=== PATIENT | male | born 1975 | race African-American/Black ===

== ENCOUNTER 2023-01-11 14:36 | Observation (INO) | payer OTHER, BC, SELFPAY ==
[2023-01-11] VITALS (35 sets, daily range): BP systolic 111–145; BP diastolic 71–92; PULSE 84–114; RESP 17–31; TEMP 36.5–37.4; O2SAT 98–100
--- NOTE | ~2023-01-11 | US_ITS ---
EXAMINATION: US venous doppler UE RT DATE: 01/11/2023 18:28 INDICATION: Right upper extremity redness right TECHNIQUE: Grayscale ultrasound images without and with compression and Doppler ultrasound images of the right upper extremity veins were obtained. COMPARISON: None. FINDINGS: The right internal jugular vein, subclavian vein, axillary vein, brachial veins, cephalic vein, radia l vein, and ulnar vein are patent. There is partial thrombosis of the right mid basilic vein. There a ppears to be a small superficial fluid collection in the skin near the cephalic vein. IMPRESSION: 1. Partial thrombosis of the right mid basilic vein. 2. Possible focal skin infection. These findings were discussed with Dr. Hernandez Alcala in the Emergency Department at 1900 hours on 01/11/2023. Reviewed, dictated and finalized at location F. IMPRESSION: 1. Partial thrombosis of the right mid basilic vein. 2. Possible focal skin infection. These findings were discussed with Dr. Hernandez Alcala in the Emergency Depar tment at 1900 hours on 01/11/2023.
--- NOTE | ~2023-01-11 | XR_ITS ---
XR chest 1V portable 01/11/2023 16:53 Indication: Cough with shortness of breath Procedure: AP portable chest Comparison: No prior studies for comparison. Findings: Heart size normal. Right lung clear. Left basilar airspace disease, compatible with pneumon ia. No pleural effusion, edema or pneumothorax. Impression: 1: Left basilar airspace disease, compatible with pneumonia. Reviewed, dictated and finalized at location L. Impression: 1: Left basilar airspace disease, compatible with pneumonia.
[2023-01-11 15:22] LABS: Basophils Absolute Auto 0.1 K/mm3 (0.0-0.1); Basophils Percent Auto 0.3 % (0.2-1.2); Eosinophils Absolute Auto 0.1 K/mm3 (0-0.3); Eosinophils Percent Auto 0.5 % (0-4.4); Hematocrit 35.1 % (42.0-52.0); Hemoglobin 10.9 g/dL (14.0-18.0); Immature Granulocyte Absolute 0.08 K/mm3 (0.00-0.031); Immature Granulocyte Percent A 0.5 % (0-0.5); Lymphocytes Absolute Auto 2.37 K/mm3 (0.9-3.2); Mean Corpuscular HGB Conc 31.1 g/dl (32-36); Mean Corpuscular Hemoglobin 30.4 pg (26-34); Mean Platelet Volume 10.4 fl (7.4-10.4); Monocytes Percent Auto 11.6 % (2.6-8.5); Neutrophils Absolute Auto 12.4 K/mm3 (1.3-6.7); Neutrophils Percent Auto 73.1 % (45.5-73.1); Platelet Count Result 375 k/mm3 (150-375); Red Blood Count 3.58 M/mm3 (4.6-6.20); Red Cell Distribution Width 13.9 % (11.5-14.5)
[2023-01-11 15:31] LABS: Alanine Aminotransferase 27 U/L (6-50); Albumin Level 3.6 g/dL (3.5-5.1); Alkaline Phosphatase 63 U/L (38-126); Anion Gap 5 mmol/L (8-16); Aspartate Amino Transferase 26 U/L (17-59); Bilirubin,Total 0.4 mg/dL (0.2-1.3); Blood Urea Nitrogen 13 mg/dL (9-20); Calcium 8.3 mg/dL (8.4-10.2); Carbon Dioxide 33 mmol/L (22-30); Chloride 102 mmol/L (98-107); Estimated CRCL calculation 118 ml/min; Estimated Glomerular Filt Rate > 60; Glucose 113 mg/dL (65-110); Potassium 3.5 mmol/L (3.4-5.0); Sodium 140 mmol/L (137-145)
[2023-01-11 15:38] LABS: D Dimer 0.55 ug/mL (<0.48)
--- NOTE | 2023-01-11 16:40 | PC.NURSE ---
EDP at bedside to assess pt.
[2023-01-11] MEDS: AZITHROMYCIN 500 MG/NS 250 ML 500 MG/250 ML BAG 250 MG IVPB (17:20)
[2023-01-11 17:35] LABS: Lactic Acid Reflex 1.1 mmol/L (0.7-2.0)
--- NOTE | 2023-01-11 17:42 | PC.NURSE ---
Patient off unit to US.
--- NOTE | 2023-01-11 18:10 | ED.EXTPRO ---
HPI - Extremity Problem General Chief complaint: Extremity Problem,Nontraumatic Stated complaint: arm swelling Time Seen by Provider: 01/11/23 16:30 History of Present Illness HPI Narrative: Patient is a 47-year-old male who presents ER due to concerns of [facility] that he may have an infection or blood clot to his right arm. They noticed it was red and today. Patient has history of schizophrenia and response to internal stimuli. He also has history of IV amphetamine abuse. They are concerned he may have a complication from that. Patient received some Ativan before he came over here and he is very sleepy. He is not reporting pain at this time but is coughing frequently. There is no SI/HI. Related Data Allergies Allergy/AdvReac Type Severity Reaction Status Date / Time NSAIDS (Non-Steroidal Allergy Unknown Verified 01/11/23 16:01 Anti-Inflamma Review of Systems Review of Systems: All systems reviewed & are unremarkable except as noted in HPI and below Constitutional: Constitutional: Denies chills, Denies fatigue and Denies fever(s) ENT: Denies nasal congestion and Denies sore throat Cardiovascular: Cardiovascular: Denies chest pain, Denies radiating jaw, neck or arm pain and Denies slow heart rate Respiratory: Respiratory: Reports cough, Reports dyspnea and Denies wheezing Gastrointestinal: Gastrointestinal: Denies abdominal pain, Denies nausea and Denies vomiting Musculoskeletal: Musculoskeletal: Denies arthralgias, Denies joint swelling and Denies muscle cramps Integumentary/Breasts: Skin/Breast: Denies erythema, Denies rash and Denies skin ulcer PMF Past Medical History Medical History (Updated 01/11/23 @ 19:12 by Hernandez Alcala MD) Schizophrenia Surgical History Surgical History (Updated 01/11/23 @ 18:11 by Hernandez Alcala MD) No pertinent past surgical history Social History Social History (Updated 01/11/23 @ 18:11 by Hernandez Alcala MD) Substance use type: amphetamines and IV drugs Exam Narrative: GENERAL: Well-appearing, sleeping, and in no acute distress. HEAD: Normocephalic, atraumatic. EYES: PERRL and EOMI. ENT: Mucous membranes moist. CHEST: Coarse bibasilar lung sounds with frequent coughing. No respiratory distress. HEART: Regular rate and rhythm. Normal peripheral pulses. ABDOMEN: Soft, nontender, nondistended. EXTREMITIES: Normal range of motion. No edema. Mild induration of the right forearm that is over areas of previous scarring from injection drug use. SKIN: Warm, dry, no rash. Increased warmth to the right arm but no overt cellulitis/redness/tenderness. No injection abscess noted. NEURO: Alert and oriented x3. PSYCH: Flat affect and somewhat sedated due to Ativan. Not actively responding to internal stimuli. Course Course Emergency Course: Patient resting comfortably. He is no longer is sedate since the Ativan has worn off. Patient reports he has been having cough and dyspnea over the last few days. He also reports soreness of the former there is some induration. There is no evidence cellulitis and there is no fluctuant abscess. Was contacted by Radiology and patient seems to have a partial thrombosis of the basilic vein in the right upper extremity, this may be chronic in nature, patient reports no previous diagnosis of DVT. Additionally there is a area that is hyperdense on ultrasound I could reflect calcification from scarring or potential phlegmon/early abscess. Patient has been started on antibiotics and will be admitted for observation. Vital Signs Vital signs: Vital Signs Temperature 97.7 F 01/11/23 14:39 Pulse Rate 114 H 01/11/23 14:39 Respiratory Rate 20 01/11/23 14:39 Blood Pressure 116/76 01/11/23 14:39 Pulse Oximetry 99 01/11/23 14:39 Oxygen Delivery Room Air 01/11/23 14:39 Temperature 97.7 F 01/11/23 14:39 Pulse Rate 84 01/11/23 17:15 Respiratory Rate 22 H 01/11/23 17:15 Blood Pressure 139/
--- NOTE | 2023-01-11 19:02 | PC.NURSE ---
Patient report given to MAHOGANY Choi. All questions answered and care of patient transferred.
--- NOTE | 2023-01-11 19:15 | PC.NURSE ---
This RN assumed care of patient. This RN took patient report from MAHOGANY Evans.
[2023-01-11] MEDS: ENOXAPARIN 100 MG/ML SYRINGE 91 MG SUB-Q (21:05)
--- NOTE | 2023-01-11 21:37 | ADMGEN ---
This patient, Heath Sidhu, was admitted to [facility] Room 301-01. Patient/family oriented to hospital policies and general routines including ID bracelet, bed and alarms, visiting hours, pain management, procedures, bathroom and other care routines, personal items, smoking policy, room service/diet, and visiting hours. Information on how to activate the Rapid Response Team has been discussed. Patient/Family are encouraged to report perceived risks to care and to ask questions if they do not understand what they are told or what they should do.
--- NOTE | 2023-01-11 23:35 | PM.IMHP ---
H&P: HPI History of Present Illness Date/Time: 01/11/23 23:15 Chief Complaint: Swollen right arm. Narrative: This is a 47-year-old male smoker with ongoing IV drug abuse, hypertension, and schizophrenia who presented to the emergency department via EMS from [place] for evaluation of a swollen right arm. The patient provides the following history. He had just arrived for treatment at [place] this morning and he was found to have a red and swollen right arm. He was sent in with concerns for possible infection or clot. He endorses discomfort in the right arm, pressure-like discomfort due to the swelling. He also reports having a cough occasionally productive of clear phlegm. He has not had a fever to his knowledge but he has some chills. Appetite has been okay and he denies vomiting and diarrhea. No sinus congestion, sore throat, chest pain, pleuritic pain, or palpitations. He has no known history of MRSA. No history of DVT. In the ED: He was afebrile on arrival with stable vital signs. Labs were significant for a WBC count of 17.0, hemoglobin 10.9, lactic acid 1.1. Right upper extremity venous Doppler ultrasound showed partial thrombosis of the right mid basilic vein and possible focal skin infection. Chest x-ray showed left basilar airspace disease consistent with pneumonia. He was given a dose of azithromycin, ceftriaxone, a therapeutic dose of enoxaparin and is being admitted in this setting for further treatment. Review of Systems Review of Systems: Twelve systems were reviewed and are negative except for as per HPI. [facility] Past Medical History Medical History (Updated 01/12/23 @ 02:41 by Mer Cortez PA-C) Hypertension Intravenous drug abuse, continuous Nicotine dependence Schizophrenia Surgical History Surgical History (Updated 01/12/23 @ 02:33 by Mer Cortez PA-C) History of hernia repair Family History Family History Other Family history unknown Social History Social History (Updated 01/12/23 @ 02:35 by Mer Cortez PA-C) Social History: Emergency contact: Pierre Valdes Sr. Code status: Full code. Smoking status: Current every day smoker Tobacco type: cigarettes Substance use: current Substance use type: amphetamines and IV drugs Lack of Transportation: YES Lack of Food: Sometimes True Current Housing: I Do Not Have Housing Concerned About Future Housing: YES Difficulty Paying Gas/Electric Bills: No Difficulty Paying for Meds: YES Currently Unemployed: YES Education: High School Diploma/GED Difficulty w/ Childcare or Family Care: No Spiritual care concerns: No Meds Home Medications and Allergies Home Medications Medication Instructions Recorded Confirmed Type No Home Medications 01/11/23 01/11/23 History Allergies Allergy/AdvReac Type Severity Reaction Status Date / Time NSAIDS (Non-Steroidal Allergy Unknown Verified 01/11/23 16:01 Anti-Inflamma Vital Signs Vital Signs - 24 hr 01/11/23 14:39 01/11/23 14:39 01/11/23 14:40 Temperature 97.7 F Pulse Rate 114 H 114 H 113 H Respiratory Rate 20 31 H 30 H Blood Pressure 116/76 140/79 Pulse Oximetry 99 100 Oxygen Delivery Room Air 01/11/23 14:55 01/11/23 15:00 01/11/23 15:01 Temperature Pulse Rate 107 H 105 H 104 H Respiratory Rate 27 H 29 H 27 H Blood Pressure 132/83 Pulse Oximetry Oxygen Delivery 01/11/23 15:15 01/11/23 15:16 01/11/23 15:20 Temperature Pulse Rate 102 H 104 H 103 H Respiratory Rate 26 H 28 H 26 H Blood Pressure 143/92 H 145/92 H Pulse Oximetry Oxygen Delivery 01/11/23 15:30 01/11/23 15:31 01/11/23 15:32 Temperature Pulse Rate 102 H 102 H 100 Respiratory Rate 29 H 28 H 30 H Blood Pressure 138/80 Pulse Oximetry Oxygen Delivery 01/11/23 15:46 01/11/23 15:47 01/11/23 16:00 Temperature Pulse Rate 101 H 99 101 H Respiratory Rate
[2023-01-12] MEDS: guaiFENesin 600 MG/DEXTROMETHORPHAN 30 MG SR TAB 12 HR 1 TAB PO ×3 (00:32→21:04)
[2023-01-12 06:00] VITALS: BP 144/74; PULSE 91; RESP 18; TEMP 36.8; O2SAT 100
[2023-01-12 07:08] LABS: Influenza A QL RT-PCR Negative (Negative); Influenza B QL RT-PCR Negative (Negative); SARS-CoV-2 RNA PCR Negative (Negative)
[2023-01-12 07:20] LABS: Anion Gap 2 mmol/L (8-16); Blood Urea Nitrogen 9 mg/dL (9-20); Calcium 8.1 mg/dL (8.4-10.2); Carbon Dioxide 31 mmol/L (22-30); Chloride 101 mmol/L (98-107); Estimated CRCL calculation 118 ml/min; Estimated Glomerular Filt Rate > 60; Glucose 91 mg/dL (65-110); Magnesium 2.2 mg/dL (1.6-2.3); Potassium 3.8 mmol/L (3.4-5.0); Sodium 134 mmol/L (137-145)
[2023-01-12 07:29] LABS: Hematocrit 34.2 % (42.0-52.0); Hemoglobin 10.8 g/dL (14.0-18.0); Mean Corpuscular HGB Conc 31.6 g/dl (32-36); Mean Corpuscular Hemoglobin 31.1 pg (26-34); Mean Corpuscular Volume 98.6 fl (80-100); Mean Platelet Volume 11.2 fl (7.4-10.4); Platelet Count Result 363 k/mm3 (150-375); Red Blood Count 3.47 M/mm3 (4.6-6.20); Red Cell Distribution Width 13.8 % (11.5-14.5); White Blood Count 12.2 K/mm3 (4.5-10.0)
[2023-01-12] MEDS: ENOXAPARIN 40 MG/0.4 ML SYRINGE SUB-Q (08:24)
[2023-01-12] MEDS: ACETAMINOPHEN 325 MG TABLET 650 MG PO ×2 (08:24→14:35)
[2023-01-12 13:48] VITALS: BP 131/73; PULSE 90; RESP 18; TEMP 36.6; O2SAT 100
--- NOTE | 2023-01-12 14:25 | PM.IMPN ---
Progress Note: A&P Assessment and Plan (1) Left lower lobe pneumonia: Code(s): J18.9 - Pneumonia, unspecified organism Status: Acute Assessment and Plan: patient having cough for approximately 1 week. Chest x-ray showing left bibasilar airspace disease compatible with pneumonia. Started on ceftriaxone and azithromycin. DuoNebs ordered. Not requiring oxygen at this time. Guaifenesin p.r.n. Sputum Culture pending Check Legionella and pneumococcal antigens as well as mycoplasma IgM. Monitor morning labs. (2) Basilic vein thrombosis: Code(s): I82.619 - Acute embolism and thrombosis of superficial veins of unspecified upper extremity Status: Acute Assessment and Plan: The patient presented to the emergency department for evaluation of right arm swelling. Ultrasound shows partial thrombosis of the right mid basilic vein which is a superficial vein thus no indication for anticoagulation. Compression and warm compresses have been ordered. Patient encouraged to elevate the affected extremity as much as possible. Ultrasound showed a small superficial fluid collection just above the antecubital fossa and though no area of fluctuance was appreciated, the cephalic vein in this region is firm and a bit tender. Lovenox 40 mg subQ daily (3) Right arm cellulitis: Code(s): L03.113 - Cellulitis of right upper limb Status: Acute Assessment and Plan: Azithromycin and ceftriaxone for left lower lobe pneumonia and this should cover underlying cellulitis of the right arm. (4) Hypertension: Code(s): I10 - Essential (primary) hypertension Status: Acute Assessment and Plan: Not currently on any home medications. (5) Intravenous drug abuse, continuous: Code(s): F19.10 - Other psychoactive substance abuse, uncomplicated Status: Acute Assessment and Plan: He is an IV drug user and is likely at risk for MRSA thus he will be given a 1 time dose of IV vancomycin pending MRSA screen. (6) Nicotine dependence: Code(s): F17.200 - Nicotine dependence, unspecified, uncomplicated Status: Acute Assessment and Plan: nicotine patch p.r.n. (7) Schizophrenia: Code(s): F20.9 - Schizophrenia, unspecified Status: Acute Assessment and Plan: not on any home medications. Plan There are no medications currently on his medication reconciliation list thus his schizophrenia is presumably on treated. He denies acute issues in that regard. Vital signs have been stable. Nicotine patch available per patient request. Subjective Date/time seen: 01/12/23 14:25 Interval history: Patient is still having some right arm discomfort. He denies any pain. There is visible swelling in the right arm but does not appear overly red or tender. He has had a cough for approximately 1 week with sputum production. He denies any body aches, chills, fever, shortness of breath, nausea vomiting. Review of Systems Review of Systems: All systems reviewed & are unremarkable except as noted in HPI and below Exam Narrative: GENERAL: Comfortable, no acute distress HENMT: moist mucous membranes EYES: EOM intact b/l NECK: no lymphadenopathy RESPIRATORY: clear to auscultation CARDIO: RRR GI: soft, nontender, bowel sounds present SKIN: no rashes EXTREMITIES: Right arm edema extending up to the forearm. No warmth or tenderness in the arm. Objective Data Vital Signs Vital Signs: Vital Signs - 24 hr 01/11/23 14:39 01/11/23 14:39 01/11/23 14:40 Temperature 97.7 F Pulse Rate 114 H 114 H 113 H Respiratory Rate 20 31 H 30 H Blood Pressure 116/76 140/79 Pulse Oximetry 99 100 Oxygen Delivery Room Air 01/11/23 14:55 01/11/23 15:00 01/11/23 15:01 Temperature Pulse Rate 107 H 105 H 104 H Respiratory Rate 27 H 29 H 27 H Blood Pressure 132/83 Pulse Oximetry Oxygen Delivery 01/11/23 1
[2023-01-12] MEDS: AZITHROMYCIN 500 MG/NS 250 ML 500 MG/250 ML BAG 250 MG IVPB (17:49)
[2023-01-12] MEDS: IPRATROPIUM BR 0.02% INH SOLN 0.5 MG/2.5 ML VIAL INHALATION (19:42)
[2023-01-12] MEDS: ALBUTEROL SULFATE NEB 2.5 MG/3 ML INH INHALATION (19:43)
[2023-01-12 19:45] VITALS: PULSE 90; RESP 20
[2023-01-12 19:47] VITALS: O2SAT 98
[2023-01-12 19:55] VITALS: PULSE 86; RESP 20
[2023-01-12 21:20] VITALS: BP 126/72; PULSE 93; RESP 16; TEMP 36.2; O2SAT 100
[2023-01-13] MEDS: ALBUTEROL SULFATE NEB 2.5 MG/3 ML INH INHALATION ×2 (02:18→08:13)
[2023-01-13] MEDS: IPRATROPIUM BR 0.02% INH SOLN 0.5 MG/2.5 ML VIAL INHALATION ×2 (02:18→08:13)
[2023-01-13 02:20] VITALS: PULSE 78; RESP 16
[2023-01-13 02:29] VITALS: PULSE 80; RESP 16
[2023-01-13 04:31] VITALS: BP 124/73; PULSE 93; RESP 16; TEMP 36.3; O2SAT 100
[2023-01-13 06:39] LABS: Hematocrit 34.9 % (42.0-52.0); Mean Corpuscular HGB Conc 31.5 g/dl (32-36); Mean Corpuscular Hemoglobin 30.5 pg (26-34); Mean Corpuscular Volume 96.7 fl (80-100); Mean Platelet Volume 10.4 fl (7.4-10.4); Platelet Count Result 420 k/mm3 (150-375); Red Blood Count 3.61 M/mm3 (4.6-6.20); Red Cell Distribution Width 13.6 % (11.5-14.5)
[2023-01-13 06:50] LABS: Alanine Aminotransferase 23 U/L (6-50); Albumin Level 3.1 g/dL (3.5-5.1); Alkaline Phosphatase 62 U/L (38-126); Anion Gap 5 mmol/L (8-16); Aspartate Amino Transferase 23 U/L (17-59); Bilirubin,Total 0.3 mg/dL (0.2-1.3); Blood Urea Nitrogen 8 mg/dL (9-20); Calcium 8.2 mg/dL (8.4-10.2); Carbon Dioxide 31 mmol/L (22-30); Chloride 99 mmol/L (98-107); Estimated CRCL calculation 117 ml/min; Estimated Glomerular Filt Rate > 60; Glucose 126 mg/dL (65-110); Potassium 3.6 mmol/L (3.4-5.0); Sodium 135 mmol/L (137-145)
[2023-01-13] MEDS: ACETAMINOPHEN 325 MG TABLET 650 MG PO (08:11)
[2023-01-13] MEDS: guaiFENesin 600 MG/DEXTROMETHORPHAN 30 MG SR TAB 12 HR 1 TAB PO (08:12)
[2023-01-13 08:14] VITALS: PULSE 80; RESP 20; O2SAT 99
[2023-01-13] MEDS: APIXABAN 5 MG TABLET 10 MG PO (08:37)
--- NOTE | 2023-01-13 13:35 | PM.DS ---
DS: Admitting Diagnosis Discharge Date 01/13/23 Admitting Diagnosis DVT, pneumonia DS: Discharge Diagnosis Discharge Diagnosis (1) Left lower lobe pneumonia: Code(s): J18.9 - Pneumonia, unspecified organism Status: Acute (2) Basilic vein thrombosis: Code(s): I82.619 - Acute embolism and thrombosis of superficial veins of unspecified upper extremity Status: Acute (3) Right arm cellulitis: Code(s): L03.113 - Cellulitis of right upper limb Status: Acute (4) Hypertension: Code(s): I10 - Essential (primary) hypertension Status: Acute (5) Intravenous drug abuse, continuous: Code(s): F19.10 - Other psychoactive substance abuse, uncomplicated Status: Acute (6) Nicotine dependence: Code(s): F17.200 - Nicotine dependence, unspecified, uncomplicated Status: Acute (7) Schizophrenia: Code(s): F20.9 - Schizophrenia, unspecified Status: Acute DS: Summary Hospital Course Hospital Course: This is a 47-year-old male smoker with ongoing IV drug abuse, hypertension and schizophrenia the presents to the ED from [place] due to evaluation of swollen right arm. He has also had a cough for approximately 1 week with sputum production. He is afebrile on arrival. His white blood cell count was 17 and lactic acid of 1.1. Right upper extremity venous Doppler ultrasound showed partial thrombus of the right mid basilic vein and possible focal skin infection. Chest x-ray showed consistent with pneumonia. Patient was started on ceftriaxone azithromycin as well as Lovenox. Care coordination consulted for [place]. Patient's labs improved with antibiotic therapy. Patient's swelling and arm pain also improved. Explained to the patient that he will be on anticoagulation therapy for approximately 3 months and he agreed with this. On day of discharge is explained to the patient that he will be on both anticoagulation therapy as well as antibiotic therapy at time of discharge and he was agreeable. His labs and vital signs are stable and he is not a clear for discharge at this time. Time Spent with Patient Time attestation: Total time spent providing and/or coordinating discharge services: Exam Narrative: GENERAL: Comfortable, no acute distress HENMT: moist mucous membranes EYES: EOM intact b/l NECK: no lymphadenopathy RESPIRATORY: clear to auscultation CARDIO: RRR GI: soft, nontender, bowel sounds present SKIN: no rashes EXTREMITIES: Right arm edema extending up to the forearm. No warmth or tenderness in the arm. Is improving. DS: Data Data Completed and Pending Labs on day of discharge: Labs from last 24 hours 01/13/23 05:43 WBC 12.0 H RBC 3.61 L Hgb 11.0 L Hct 34.9 L MCV 96.7 MCH 30.5 MCHC 31.5 L RDW 13.6 Plt Count 420 H MPV 10.4 Sodium 135 L Potassium 3.6 Chloride 99 Carbon Dioxide 31 H Anion Gap 5 L BUN 8 L Creatinine 0.80 Estim Creat Clear Calc 117 Estimated GFR > 60 Glucose 126 H Calcium 8.2 L Total Bilirubin 0.3 AST 23 ALT 23 Alkaline Phosphatase 62 Total Protein 7.0 Albumin 3.1 L Preliminary micro results at discharge 01/12/23 13:01 Sputum Culture - Preliminary Sputum 01/11/23 19:56 Blood Culture - Preliminary Blood 01/11/23 17:19 Blood Culture - Preliminary Blood Discharge Plan Discharge Attending physician on discharge: Siddhartha Sanz Discharging Clinician: Peg Daugherty Patient Disposition: Home, Self-Care Activity: as tolerated Diet: regular Discharge Instructions: Eliquis 10 mg twice daily for 1 week then 5 mg twice daily. Follow-up with your primary care for repeat pills on your Eliquis. Will need to take this for 3 months. Levaquin 750 mg daily for pneumonia. Anticoagulation Medication: Please take medication as prescribed Do not stop medication before talking to your doctor Bleeding risk is increased while taking medications like a
[2023-01-15 12:45] LABS: Pneumococcal Antigen Urine Not Detected (Not Detected)
[2023-01-16 13:40] LABS: Mycoplasma IgM Antibody Titer 242 U/mL (<770)
[2023-01-17 12:32] LABS: Legionella pneumophila Ag Ur Not Detected (Not Detected)
== END 2023-01-13 13:50 | disposition home or self-care (01) ==
LOC: ANHED 21:03 → ANH3MEDSUR 21:59
PROVIDERS: Internal Medicine Critical Care Medicine; Physician Assistant; Admitting Provider Hospitalist; Emergency Provider Emergency Medicine; Visit Provider Internal Medicine
DX: J18.9 Pneumonia, unspecified organism (principal); I82.611 Acute embolism and thrombosis of superficial veins of right upper extremity; L03.113 Cellulitis of right upper limb; D72.829 Elevated white blood cell count, unspecified; Z20.822 Contact with and (suspected) exposure to COVID-19; F20.9 Schizophrenia, unspecified; F19.10 Other psychoactive substance abuse, uncomplicated; R05.9 Cough, unspecified; R91.8 Other nonspecific abnormal finding of lung field; I10 Essential (primary) hypertension; F17.210 Nicotine dependence, cigarettes, uncomplicated
CPT/HCPCS: 36415; 71045; 80048; 80053; 83605; 83735; 85025; 85027; 85380; 86738; 87040; 87070; 87081; 87205; 87449; 87636; 87899; 93971; 94640; 96365; 96367; 96372; 96375; 99285; A9270; G0378; G0379; J0456; J0696; J1650; J3370